=== PATIENT | female | born 1990 | race African-American/Black ===

== ENCOUNTER 2017-11-11 15:40 | Emergency (ER) | payer OTHER ==
[~2017-11-11] VITALS: Ht 167.6 cm; Wt 91.6 kg
[~2017-11-11 15:40] MED LIST: AMOXICILLIN500 M1 PO; Amoxicillin PO; COLACE100 MG PO; ENDOCET 5-3251 EACH PO; FEOSOL325 MG PO; Feosol PO; KEFLEX500 MG PO; MOTRIN600 MG PO; MOTRIN800 MG PO; Motrin PO; NOHOMEMEDS; NORCO 7.5/321 TABLET PO; Natalcare Rx,Pramile PO; PEN-VEE K,VEET500 MG PO; PEPCID20 MG PO; PRENATAL VITAM1 EAC1 PO; PRENATAL1 EACH PO; Percocet 5/325,Endoc PO; REGLAN10 MG PO; TYLENOL REGULA325 MG PO; TYLENOL WITH C1 EACH PO; ULTRAM50 MG PO
[2017-11-11 15:42] VITALS: BP 134/75
[2017-11-11] MEDS ORDERED: PERCOCET 5/31 TABLET PO (17:47)
== END 2017-11-11 18:44 | disposition home or self-care (01) ==
LOC: EME 15:40
PROC: 0PSTXZZ Reposition Right Finger Phalanx, External Approach (ICD-10-PCS; principal; 2017-11-11)
DX: S62.616A Displaced fracture of proximal phalanx of right little finger, initial encounter for closed fracture (principal); W23.0XXA Caught, crushed, jammed, or pinched between moving objects, initial encounter
CPT/HCPCS: 73140; 99281; 99285; S0020

== ENCOUNTER 2017-11-17 14:14 | Emergency (ER) | payer OTHER ==
[~2017-11-17] VITALS: Ht 167.6 cm; Wt 90.8 kg
[~2017-11-17 14:14] MED LIST changes: +PERCOCET 5/31 TABLET PO
[2017-11-17] MEDS ORDERED: MOTRIN800 MG PO ×2 (16:22→17:09)
[2017-11-17] MEDS ORDERED: PERCOCET 5/31 TABLET PO (16:22)
[2017-11-17 17:18] VITALS: BP 128/74
== END 2017-11-17 17:21 | disposition home or self-care (01) ==
LOC: EME 14:14
PROC: 2W3CX1Z Immobilization of Right Lower Arm using Splint (ICD-10-PCS; principal; 2017-11-17)
DX: S62.606A Fracture of unspecified phalanx of right little finger, initial encounter for closed fracture (principal)
CPT/HCPCS: 99281; 99283

== ENCOUNTER 2017-11-26 15:16 | Emergency (ER) | payer OTHER ==
[~2017-11-26] VITALS: Ht 167.6 cm; Wt 89.6 kg
[2017-11-26 15:19] VITALS: BP 136/91
[2017-11-26] MEDS ORDERED: NORCO 5/3251 TABLET PO (17:31)
[2017-11-26] MEDS ORDERED: NAPROSYN500 MG PO (17:31)
[2017-11-28] MEDS ORDERED: MOTRIN800 MG PO (11:09)
[2017-11-28] MEDS ORDERED: NAPROSYN500 MG PO (11:10)
[2017-11-28] MEDS ORDERED: HYDROCODON-ACE1 EAC7 PO (11:10)
== END 2017-11-26 18:46 | disposition home or self-care (01) ==
LOC: EME 15:16
PROC: 2W3JX1Z Immobilization of Right Finger using Splint (ICD-10-PCS; principal; 2017-11-26)
DX: S62.636A Displaced fracture of distal phalanx of right little finger, initial encounter for closed fracture (principal); W23.0XXA Caught, crushed, jammed, or pinched between moving objects, initial encounter
CPT/HCPCS: 73140; 99281; 99284

== ENCOUNTER 2017-12-01 12:34 | Day surgery (SDC) | payer OTHER ==
[~2017-12-01] VITALS: Ht 167.6 cm; Wt 90.0 kg
[~2017-12-01 12:34] MED LIST changes: +HYDROCODON-ACE1 EAC7 PO; +NAPROSYN500 MG PO; +NORCO 5/3251 TABLET PO
[2017-12-01 13:03] VITALS: BP 122/84
[2017-12-01 16:30] VITALS: BP 131/87
[2017-12-01 17:29] VITALS: BP 131/84
== END 2017-12-01 17:25 | disposition home or self-care (01) ==
LOC: SDC 12:34
PROC: 0PST04Z Reposition Right Finger Phalanx with Internal Fixation Device, Open Approach (ICD-10-PCS; principal; 2017-12-01)
DX: S62.616A Displaced fracture of proximal phalanx of right little finger, initial encounter for closed fracture (principal)
CPT/HCPCS: 73140; 76000; J0131; J0690; J1100; J1170; J1885; J2250; J2405; J3010; J7643